=== PATIENT | female | born 1980 | race Caucasian/White ===

== ENCOUNTER → 2020-07-20 | Outpatient (CLI) | payer OTHER ==
--- NOTE | 2020-07-20 13:38 | XR ---
EXAMINATION TYPE: XR chest 2V DATE OF EXAM: 07/20/2020 COMPARISON: None INDICATION: Postcoital TECHNIQUE: Frontal and lateral views of the chest are obtained. FINDINGS: The heart size is normal. The pulmonary vasculature is normal. The lungs are clear. Mild tenting of the left costophrenic angle is noted which can be related to at electasis. There appears to be some hyperinflation present. IMPRESSION: 1. Mild tenting of the left diaphragm can be related to atelectasis. 2. Hyperinflation. 3. Acute pulmonary process not otherwise evident.
--- NOTE | 2020-07-20 13:39 | XR ---
EXAMINATION TYPE: XR wrist complete LT DATE OF EXAM: 07/20/2020 COMPARISON: None HISTORY: Pain TECHNIQUE: 4 view left wrist FINDINGS: No acute fractures are evident. Joint spaces appear preserved. Soft tissues are unremarkabl e. If there is clinical concern for soft tissue injury, MRI could be performed. IMPRESSION: 1. Normal 4 view left wrist
== END | disposition home or self-care (01) ==
LOC: RADXRMAIN 13:06
PROVIDERS: ATTEND Family Medicine
DX: M25.532 Pain in left wrist (principal); R91.8 Other nonspecific abnormal finding of lung field
CPT/HCPCS: 71046